=== PATIENT | male | born 1955 | race Caucasian/White ===

== ENCOUNTER 2023-01-29 08:43 | Observation (INO) | payer BC, SELFPAY ==
[2023-01-29] VITALS (7 sets, daily range): BP systolic 117–150; BP diastolic 63–93; PULSE 51–69; RESP 16–18; TEMP 36.2–36.8; O2SAT 97–99; BMI 30.3
--- NOTE | 2023-01-29 09:00 | CT_ITS ---
ACR Level 3 findings have been noted. An addendum which confirms receipt of the report will follow. HISTORY: RLQ pain. TECHNIQUE: Helically acquired images were obtained of the abdomen and pelvis after the intravenous administration of 100 mL Isovue 300. Oral Gastrografin also administered. A radiation dose optimization technique was used for this scan. 405 images. COMPARISON: None. FINDINGS: LOWER CHEST: Lung bases clear. BOWEL: 13 mm fluid-filled appendix with appendicoliths measuring up to 1.6 cm and mild surrounding stranding. Small bowel nondilated. Moderate stool in the colon. Mild colonic diverticulosis without focal inflammatory change observed. PERITONEUM: No gross free air, periappendiceal fluid collection, or significant ascites. LIVER: No enhancing mass. GALLBLADDER/BILIARY TREE: Gallbladder present. SPLEEN/PANCREAS/ADRENAL GLANDS: Homogeneous and nonenlarged. KIDNEYS: 2 to 3 mm bilateral renal calculi. No hydronephrosis. VESSELS: No abdominal aortic aneurysm. PELVIC ORGANS: Small prostate calcifications incidentally noted. ABDOMINAL WALL: Small fat-containing inguinal and umbilical hernias. BONES: Mild degenerative change CT/Abdomen/Pelvis WITH Contrast IMPRESSION: Acute appendicitis with a moderately dilated appendix containing large appendicoliths and mild surrounding inflammation. Mild colonic diverticulosis without acute diverticulitis. Small bilateral nonobstructing renal calculi. Electronically Signed: Katie Harden MD at 10:56 EST ,
--- NOTE | 2023-01-29 09:00 | ED.VIS.GI ---
HPI HPI - GI History of Present Illness Chief Complaint: Abd Pain Informant: patient and spouse/S.O. Abdominal Pain/Flank Pain Onset: Hours (8) Context: Gradual Onset Timing: Continuous Quality: Aching Location: Diffuse Current Severity: Moderate Maximum Severity: Moderate Worsened by: Nothing Relieved by: Not Relieved By Antacids Nausea/Vomiting/Emesis GI Symptom: Positive for Nausea; Negative for Vomiting Diarrhea/Melena/Hematochezia GI Symptom: Negative for Diarrhea, Melena or Hematochezia Associated Symptoms Associated Symptoms: Negative for Dysuria, Frequency or Hematuria Narrative Narrative: 67-year-old male presents with diffuse abdominal discomfort that started in the middle of the night around 1 AM, has been mild but progressive to the point where it is more prominent, he tried several rounds of antiacids without relief, thinking maybe this was gas and typically that is relieved when he takes an acids. He states the pain feels like it is diffuse but when he presses around on his abdomen, he notes focal discomfort when he presses in the right lower quadrant. No radiation into his back or elsewhere. No migration at this time. No history of any abdominal surgeries. Has had kidney stones multiple times in the past and notes this does not feel like that. [facility] Medical History (Updated 01/29/23 @ 11:[address] Merrill Reyes MD) BPH (benign prostatic hyperplasia) Kidney stones Allergy/AdvReac Type Severity Reaction Status Date / Time No Known Allergies Allergy Verified 01/29/23 08:48 Surgical History no surgical history no surgical history Social History Smoking Status: Never smoker ROS [facility] ED Constitutional Constitutional ED: Denies chills or fever(s) Eyes Eyes: Denies change in vision or diplopia ENT ENT ED: Denies rhinorrhea or sore throat Cardiovascular Cardiovascular: Denies chest pain or palpitations Respiratory/Chest Respiratory/Chest: Denies cough or dyspnea Gastrointestinal Gastrointestinal: Reports abdominal pain; Denies diarrhea, hematochezia, melena, nausea or vomiting Genitourinary Genitourinary ED: Denies dysuria or hematuria Musculoskeletal Musculoskeletal: Denies back pain or neck pain Integumentary Denies abscess or rash Neurologic Neurologic: Denies headache(s), paresthesias or weakness Psychiatric Psychiatric: Denies anxiety or suicidal thoughts EXAM Physical Exam Const Vital Signs: 01/29/23 08:43 Temperature 97.1 F L Temperature Source Temporal Pulse Rate 53 L Respiratory Rate 16 Blood Pressure 150/93 H Blood Pressure Mean 112 Pulse Ox 99 Oxygen Delivery Method Room Air Positive well nourished and well developed General Appearance ED: well developed and NAD HEENT Reports moist mucous membranes normocephalic and atraumatic Eyes PERRL and EOMs intact bilaterally Neck full ROM and supple Resp normal respiratory effort and clear to auscultation bilaterally Cardio regular rate, regular rhythm and no murmurs GI non-distended GI Narrative: tenderness w/o guarding or rebound to the lateral RLQ, several cm superior to McBurney's pt, where the pt is not tender. No other areas of abd tenderness. Negative Rovsing, obturator, psoas signs. No hernias. Auscultation: normoactive bowel sounds Palpation: soft Back/Spine no CVA tenderness General Back: other FROM Extremity normal to inspection General Extremety ED: Negative for edema, pulses abnormal or tenderness General Extremity: Negative for edema or pulses abnormal Neuro oriented x3, CN's II-XII intact bilaterally and no sensory deficits noted Sensorium / Orientation: awake and alert Motor Exam: strength 5/5 throughout Skin no rashes or lesions noted and no wounds MDM MDM MDM Narrative Medical decision making narrative: Certainly appendicitis in the differential diagnosis as are mimic such as mesenteric adenitis. He has no tenderness in the right upper quadrant so cholelithiasis/biliary colic thought to be much less likely here, and I think labs and a CT of the most appropriate initial workup. Obtained an oral and IV contrast CT, discussed with radiologist and I read the report and reviewed the images, I agree with the radiologist, basically consistent with acute appendicitis with several appendicoliths, despite his lack of a leukocytosis more likely because of him being early in the process. No evidence of rupture or abscess. Patient was initially given morphine, he had worsening pain and then was treated with fentanyl and Toradol and helped more. He has been n.p.o. all day. Discussed with surgery for evaluation, plan is to go to the OR, Tay started in the emergency department. Lab Data Attestation: I reviewed the patient's lab results. Labs: Laboratory Results - last 24 hr 01/29/23 01/29/23 09:14 09:16 WBC 8.6 RBC 4.68 Hgb 14.6 Hct 42.5 MCV 90.8 MCH 31.2 MCHC 34.4 RDW Std Deviation 42.4 RDW Coeff of Kristie 12.9 Plt Count 250 MPV 8.7 Immature Gran % (Auto) 0.100 Neut % (Auto) 74.8 H Lymph % (Auto) 17.0 L [place] % (Auto) 6.0 Eos % (Auto) 1.5 Baso % (Auto) 0.6 Absolute Neuts (auto) 6.4 Absolute Lymphs (auto) 1.46 Nucleated RBC % 0 Sodium 136 Potassium 4.0 Chloride 105 Carbon Dioxide 29.0 Anion Gap 2 L BUN 16 Creatinine 1.17 Estim Creat Clear Calc 58.85 Est GFR (MDRD) Af Amer 80 Est GFR (MDRD) Non-Af 67 BUN/Creatinine Ratio 13.7 Glucose 100 Calcium 10.5 H Urine Color Yellow Urine Clarity Clear Urine pH 8.0 Ur Specific [place] 1.020 Urine Protein 100 H Urine Glucose (UA) Normal Urine Ketones 5 H Urine Occult Blood 50 H Urine Nitrite Negative Urine Bilirubin Negative Urine Urobilinogen Normal Ur Leukocyte Esterase Negative Urine RBC 5-10 SEEN Urine WBC 0 SEEN Ur Squamous Epith Cells 0 SEEN Urine Bacteria 0 SEEN Urine Mucus 0 SEEN Radiography Diagnostic Testing: Clinical Impression(s) from Imaging Studies Abdomen/Pelvis CT 01/29/23 09:00 IMPRESSION: Acute appendicitis with a moderately dilated appendix containing large appendicoliths and mild surrounding inflammation. Mild colonic diverticulosis without acute diverticulitis. Small bilateral nonobstructing renal calculi. Electronically Signed: Katie Harden MD at 10:56 EST , ADDENDUM: 01/29/23 1112 IMPRESSION: Acute appendicitis with a moderately dilated appendix containing large appendicoliths and mild surrounding inflammation. Mild colonic diverticulosis without acute diverticulitis. Small bilateral nonobstructing renal calculi. N.B. : Merrill Reyes MD, confirmed on 01/29/2023 11:05:39 (ET) that the healthcare facility has received the radiology report. Electronically Signed: Katie Harden MD at 10:56 EST , Discharge Plan Triage Chief Complaint: Abd Pain ED Provider: Merrill Reyes Dx/Rx/DC Orders Clinical Impression: Acute appendicitis Primary Care Provider: Katarzyna Canas NP Referrals: Katarzyna Canas NP, ACQUISITION ANALYST-C [Primary Care Provider] - Disposition Disposition: Acute Care Hospital [facility]
[2023-01-29] MEDS: 0.9% Normal Saline (1000mL) 1,000 ML 125 ML IV (09:11)
[2023-01-29] MEDS: Ondansetron 4 MG/2 ML Vial IV (09:11)
[2023-01-29 09:20] LABS: Absolute Lymphocyte Count 1.46 X10^3/uL (0.83-4.51); Absolute Neutrophil Count 6.4 X10^3/uL (2.0-7.7); Basophil# 0.05 X10^3/uL; Basophil% 0.6 % (0-1); Eosinophil# 0.13 X10^3/uL; Eosinophils% 1.5 % (0-5); Hematocrit 42.5 % (40-54); Hemoglobin 14.6 g/dL (13.0-16.5); Lymphocyte # 1.46 X10^3/ul (0.83-4.51); Mean Corp Hgb Conc 34.4 g/dL (32-36); Mean Corpuscular Hgb 31.2 pg (27.0-32.0); Mean Corpuscular Volume 90.8 fL (80-94); Mean Platelet Vol. 8.7 fl (6.2-12.0); Monocyte# 0.52 X10^3/uL; NRBC Flagged by Analyzer 0 % (0-5); Neutrophil # 6.44 X10^3/uL (2.7-7.7); Neutrophil % 74.8 % (47-70); Platelet Count 250 K/mm3 (150-450); RBC Distribution Width CV 12.9 % (11.6-14.6); RBC Distribution Width SD 42.4 fl (35.1-43.9); Red Blood Count 4.68 M/mm3 (4.6-6.2); White Blood Count 8.6 K/mm3 (4.4-11.0)
[2023-01-29 09:21] LABS: Bacteria 0 SEEN /hpf (None Seen); Mucous, Urine 0 SEEN /hpf (<or=2+); Squamous Epithelial Cells - UA 0 SEEN /hpf (0-5); White Blood Cells 0 SEEN /hpf (0-5)
[2023-01-29] MEDS: Morphine 4 MG/ML Syringe IV (09:25)
[2023-01-29 09:28] LABS: Color, Urine Yellow (Yellow); Glucose, Dipstick Normal (Normal); Ketone-Dipstick 5 mg/dl (Negative); Leukocyte Esterase-Dipstick Negative /ul (Negative); Nitrite-Dipstick Negative (Negative); Occult Blood-Urine 50 /ul (Negative); Protein-Dipstick 100 mg/dl (Negative); Urine Bilirubin Dipstick Negative (Negative); Urine Clarity Clear (Clear); Urine Urobilinogen Normal (Normal)
[2023-01-29 09:33] LABS: Red Blood Cells-Urine 5-10 SEEN /hpf (0-5)
[2023-01-29 09:45] LABS: Anion Gap 2 (5-15); BUN 16 mg/dL (7-18); BUN/Creat Ratio 13.7 RATIO (10-20); Calcium,Total 10.5 mg/dL (8.5-10.1); Chloride 105 mmol/L (98-107); Creatinine, Serum 1.17 mg/dL (0.70-1.30); EST Glomerular Filtration Rate 67 mL/min (>60); Est Glom Filt Rate - Afr Amer 80 mL/min (>60); Estimated Creatinine Clearance 58.85 ml/min; Glucose 100 mg/dL (74-106); Sodium Level 136 mmol/L (136-145)
[2023-01-29] MEDS: Ketorolac 15 MG/ML Vial IV (10:53)
[2023-01-29] MEDS: fentaNYL 100 MCG/2 ML Ampul 50 MCG IV (10:53)
--- NOTE | 2023-01-29 11:11 | PCM.HP.STD ---
HPI - General General Date of Admission: 01/29/23 HPI Narrative RAY RUSSELL, is a 67 M who presents to the ER due to abdominal pain started at 1 AM this morning. Currently right lower abdomen. Patient had a CT abdomen pelvis was consistent with acute appendicitis with appendicoliths. Patient's white blood count is within normal limits with the starting of a left shift. Patient's never had any abdominal surgeries. Patient did have some nausea denies any vomiting. Patient not have anything to eat today. [facility] Medical History (Updated 01/29/23 @ 11:[address] Merrill Reyes MD) BPH (benign prostatic hyperplasia) Kidney stones Home Medications aspirin 81 mg chewable tablet 1 tab PO DAILY 01/29/23 [History Last Taken 01/28/23] azelastine 137 mcg (0.1 %) nasal spray aerosol 1 spray intranasal DAILY PRN 01/29/23 [History Last Taken 01/27/23] tamsulosin 0.4 mg capsule 0.4 mg PO Q24H 01/29/23 [History Last Taken 01/28/23] turmeric 400 mg capsule 1,000 mg PO DAILY 01/29/23 [History Last Taken 01/28/23] Allergy/AdvReac Type Severity Reaction Status Date / Time No Known Allergies Allergy Verified 01/29/23 08:48 Surgical History no surgical history Social History Smoking Status: Never smoker Vital Signs Vital Signs Vital Signs: 01/29/23 08:43 Temperature 97.1 F L Temperature Source Temporal Pulse Rate 53 L Respiratory Rate 16 Blood Pressure 150/93 H Blood Pressure Mean 112 Pulse Ox 99 Oxygen Delivery Method Room Air Weight Weight: 193 lb 12.8 oz Body Mass Index (BMI) 30.3 Physical Exam Const alert, oriented x3 and no apparent distress HEENT normocephalic and head/scalp atraumatic Resp normal respiratory effort Cardio regular rate GI soft to palpation; Negative for non-distended Palpation: tender RLQ; Negative for guarding Extremity no clubbing, cyanosis or edema Neuro CN's II-XII intact bilaterally Psych mental status grossly normal Results Lab / Micro Data 01/29/23 09:14 01/29/23 09:14 Labs: Laboratory Results - last 24 hr 01/29/23 09:14: WBC 8.6, RBC 4.68, Hgb 14.6, Hct 42.5, MCV 90.8, MCH 31.2, MCHC 34.4, RDW Std Deviation 42.4, RDW Coeff of Kristie 12.9, Plt Count 250, MPV 8.7, Immature Gran % (Auto) 0.100, Neut % (Auto) 74.8 H, Lymph % (Auto) 17.0 L, [place] % (Auto) 6.0, Eos % (Auto) 1.5, Baso % (Auto) 0.6, Absolute Neuts (auto) 6.4, Absolute Lymphs (auto) 1.46, Nucleated RBC % 0, Sodium 136, Potassium 4.0, Chloride 105, Carbon Dioxide 29.0, Anion Gap 2 L, BUN 16, Creatinine 1.17, Estim Creat Clear Calc 58.85, Est GFR (MDRD) Af Amer 80, Est GFR (MDRD) Non-Af 67, BUN/Creatinine Ratio 13.7, Glucose 100, Calcium 10.5 H 01/29/23 09:16: Urine Color Yellow, Urine Clarity Clear, Urine pH 8.0, Ur Specific [place] 1.020, Urine Protein 100 H, Urine Glucose (UA) Normal, Urine Ketones 5 H, Urine Occult Blood 50 H, Urine Nitrite Negative, Urine Bilirubin Negative, Urine Urobilinogen Normal, Ur Leukocyte Esterase Negative, Urine RBC 5-10 SEEN, Urine WBC 0 SEEN, Ur Squamous Epith Cells 0 SEEN, Urine Bacteria 0 SEEN, Urine Mucus 0 SEEN Imagaing Radiology Impression Abdomen/Pelvis CT 01/29/23 09:00 IMPRESSION: Acute appendicitis with a moderately dilated appendix containing large appendicoliths and mild surrounding inflammation. Mild colonic diverticulosis without acute diverticulitis. Small bilateral nonobstructing renal calculi. Electronically Signed: Katie Harden MD at 10:56 EST , Assessment & Plan Assessment/Plan (1) Acute appendicitis: PLAN: Plan 1. Discussed procedure laparoscopic appendectomy, possible open along with the risk but not limited to bleeding, infection/abscess, injury to another organ (small bowel, colon, etc.), adhesion, hernia at incision sites, and anesthesia. Patient and his have no further question this time. Nata Dykes M.D. Pager: [phone] [facility] [address] [place] [address], [address] [place] [address] Office: [phone]
[2023-01-29] MEDS: Piperacil/Tazobactam 3.375 GM in 0.9% Normal Saline (50mL MB+) 50 ML IV (11:31)
--- NOTE | 2023-01-29 12:00 | APP_PTH ---
PATIENT: RAY RUSSELL LOC: MS3 U#:[id number] AGE/SX: 67/M ROOM: [facility] [place] RE01/29/[address]: Dr. Nata Dykes MD : 1955 BED: 1 DIS: 01/29/2023 SPEC #: [id number] RECD: 02/01/23 07:03 STATUS: IVORY LATRICE #: [id number] STEPHANIE: 01/29/23 12:[address]: Nata Dykes DEPT: SURGICAL PATHOLOGY RECD BY: Prisca Palumbo ENTERED: 02/01/23 07:04 SP TYPE: APPENDIX OTHR DR: NAS Crenshaw Tissues: Appendix, NOS Procedures: Surgery Specimen Level III HEADER OPERATION: Laparoscopic appendectomy PRE-OP DIAGNOSIS: Acute appendicitis TISSUE SUBMITTED: Appendix MICROSCOPIC DIAGNOSIS Appendix, appendectomy: Acute appendicitis. Acute serositis. AM:neelam 02/02/2023 MICROSCOPIC DESCRIPTION Slides are reviewed. GROSS DESCRIPTION Received in fixative is one container labeled with the patient's name and designated appendix. The specimen consists of a vermiform appendix measuring 8.0 cm in length and 1.6 cm in average diameter. No gross perforations are evident. Serial sections reveal fecal impaction. No mass lesion is identified. L[employer] sections are submitted in one cassette. / AM:neelam 02/01/2023 TC:2 CPT: 59760
--- NOTE | 2023-01-29 12:01 | EKG12_ITS ---
Test Reason : PREOP Blood Pressure : / mmHG Vent. Rate : 051 BPM Atrial Rate : 051 BPM P-R Int : 152 ms QRS Dur : 084 ms QT Int : 430 ms P-R-T Axes : 040 076 051 degrees QTc Int : 396 ms Sinus bradycardia Otherwise normal ECG When compared with ECG of 28-FEB-2013 09:24, No significant change was found Confirmed by MIC SCHAFER, DONENLL ([id number]), commercial production editor NOLA PENA ([id number]) on 02/02/2023 7:58:26 AM Referred By: VLAD Confirmed By:DONNELL HAILE MD
[2023-01-29] MEDS: 0.9% Normal Saline (1000mL) 1,000 ML 15 ML IV (12:11)
[2023-01-29] MEDS: Bupivacaine Mpf 0.5% 30 ML VIAL (13:40)
--- NOTE | 2023-01-29 13:43 | PCM.OPRPT ---
Report of Operation Date of Procedure: 01/29/23 Pre-Operative Diagnosis: Acute appendicitis Post-Operative Diagnosis: Same Surgery/Procedure Performed:: Laparoscopic appendectomy Surgeon: Nata Dykes Type of Anesthesia: General/Supplemental Anesthesiologist: Elvis Singh Special Medications: Zosyn 3.375 g IV x 1 Specimen's removed: Appendix Estimated Blood Loss (mL): < 10 cc Description of Procedure: Indications: 67-year-old male presented to the ER with new right lower quadrant pain this morning. On workup he was found to have acute appendicitis on CT and a leukocytosis of within normal limits with a slight left shift. Patient was started on antibiotics in the ER for acute appendicitis-Zosyn 3.375 g IV x 1 Description of the procedure: The patient was placed on operating table in supine position. General anesthesia was induced. A timeout was completed verifying correct patient, procedure, position and special equipment prior to beginning procedure. Abdomen was prepped and draped in usual sterile fashion. Incision was made in the natural skin line above the umbilicus with a 15 blade scalpel. The fascia was elevated and incised. Entry into the peritoneum was confirmed visually and no bowel was noted in the vicinity of the incision. The Soto trocar was placed under direct vision. Abdomen insufflated with a pressure of 12-15 mmHg. Patient tolerated insertion well. The scope was inserted and the abdomen inspected. No injuries from initial trocar placement were noted. Minimal amount of fluid was seen in the right lower quadrant. An direct visualization 2 -5 mm trocars were placed one above the symphysis pubis and below the hairline and one in the left lower quadrant lateral to the rectus muscle. Care is taken to avoid injury to the bladder and inferior epigastric vessels. The table was placed in Trendelenburg position with the right side elevated. The appendix was grasped with atraumatic grasper and elevated. It was noted to be dilated/inflamed. A window was developed in the mesoappendix at the point between the base of the appendix and the cecum. An endoscopic 45 mm linear cutting stapler blue load was then used to divide and staple the base of the appendix. Enseal was used to divide the mesoappendix The appendix was withdrawn into the Soto trocar after being placed endoscopically retrieval bag. Appendix was sent to pathology. The appendiceal stump was then irrigated and hemostasis was assured. Fluid was suctioned no other pathology was identified. Secondary trochars were removed under direct visualization. No bleeding was noted trocar sites. The laparoscope withdrawn and the umbilical trocar removed. The abdomen was allowed to collapse. Local anesthesia of 30 mL of 0.5% Marcaine was used at the incision sites. The umbilical trocar site was closed with the [id number] 0 Vicryl suture. The skin was closed using sutures of 4-0 Monocryl and Steri-Strips. The patient was extubated. The patient tolerated the procedure well and was taken to the postanesthesia care unit in satisfactory condition.
--- NOTE | 2023-01-29 13:45 | DCINST_ITS ---
Discharge Instructions Diet Discharge Diet: Light diet - advance as tolerated Activity Discharge Activity: May Not Drive (while taking narcotic pain medications.) May shower in (days): 1 Lifting Restrictions: no lifting >20 lbs x 2 wks, no strenuous exercise for 4 wks Dressing / Incision Call your doctor if your incision/area has: Continuous Slow Oozing, Sudden Increased Bleeding, Increased Pain/ Swelling, Increased Redness, Foul Smelling Discharge and Swelling at the incision site Call your doctor if you observe: Fever of 101 or Higher Remove Dressing in: 2 days Cleanse incision/area with: Soap & Water Additional Dressing/Incision Instructions:: Steri-Strips will fall off in 7 to 10 days, if they do not fall off okay to remove after 10 days. Follow Up Care Please Follow Up With: Nata Dykes MD When: Call the office for a follow-up appointment 2 weeks; after 5 PM and on the weekends call [phone] with any concerns. Test Results: Test results from this visit will be discussed in further detail at your follow- up appointment, if applicable. Discharge Plan Admission Admit Date/Time: 01/29/23 11:32 Attending Provider: Nata Dykes Primary Care Provider: Katarzyna Canas NP Discharge Orders/Prescriptions Prescriptions: New oxycodone-acetaminophen 5-325 mg tablet 1 - 2 tab PO Q6H PRN (Reason: pain) 3 Days Qty: 14 0RF Continued tamsulosin 0.4 mg capsule 0.4 mg PO Q24H azelastine 137 mcg (0.1 %) aerosol,spray 1 spray INTRANASAL DAILY PRN Held turmeric 400 mg capsule 1,000 mg PO DAILY Hold Instructions: Resume on 02/01/23. Patient Comments: PT BELIEVES HE TAKES 1000MG CAPSULE aspirin 81 mg tablet,chewable 1 tab PO DAILY Hold Instructions: Resume on 01/31/23. Referrals / Follow Up: Katarzyna Canas NP, HAND COOPER HELPER-C [Primary Care Provider] - Disposition Disposition (needs filled in before D/C Order can be placed): Home, Self Care
[2023-01-29] MEDS: Lactated Ringers 1,000 ML 15 ML IV (14:07)
[2023-01-29] MEDS: oxyCODONE 5 MG Tablet PO (17:46)
== END 2023-01-29 18:14 | disposition home or self-care (01) ==
LOC: ED 11:46 → SDC 11:56 → MS3 12:25
PROVIDERS: Admitting Provider Surgery; Emergency Provider Emergency Medicine; PCP Nurse Practitioner Adult Health; Visit Provider Surgery
PROC: 0DTJ4ZZ Resection of Appendix, Percutaneous Endoscopic Approach (ICD-10-PCS; CPT 44970; principal; 2023-01-29 11:40)
DX: K35.80 Unspecified acute appendicitis (principal); N40.0 Benign prostatic hyperplasia without lower urinary tract symptoms; Z79.82 Long term (current) use of aspirin; Z79.899 Other long term (current) drug therapy; R00.1 Bradycardia, unspecified
CPT/HCPCS: 44970; 00840; 74177; 80048; 81001; 85025; 88304; 93005; 94668; 96365; 96366; 96375; 99284; J7030; J7120; Q9967; A4216; C1760; J2405